=== PATIENT | male | born 1995 | race Caucasian/White ===

== ENCOUNTER → 2025-04-29 12:16 | Outpatient (CLI) | payer SELFPAY ==
[2025-04-29 21:09] LABS: Urine N gonorrhoeae NOT DETECTED
[2025-04-29 21:10] LABS: Urine Chlamydia NOT DETECTED
== END ==
PROVIDERS: Visit Provider Physician Assistant Medical
DX: N50.811 Right testicular pain (principal); N50.812 Left testicular pain
CPT/HCPCS: 87491; 87591

== ENCOUNTER → 2025-05-13 15:31 | Outpatient (CLI) | payer SELFPAY ==
--- NOTE | 2025-05-13 15:35 | DI.US.S_ITS ---
PROCEDURE: US SCROTUM INDICATIONS: testicular pain TECHNIQUE: Real-time scanning was performed of the scrotum and testicles, with image documentation. Color and pulse Doppler interrogation was performed of both testicles. COMPARISON: None. FINDINGS: Right: Right testis is normal in size at 4.8 x 3.5 x 2.6 cm, and homogenous in echotexture. Epididymis is normal in overall size and morphology. No hydrocele or varicoceles. Overlying scrotal skin is normal in thickness. Approximately 3-4 nonspecific microcalcifications. Left: Testicle is normal in size at 4.7 x 3.0 x 2.2 cm, and homogeneous in echotexture. Epididymis is normal in overall size and morphology. No hydrocele or varicoceles. Overlying scrotal skin is normal in thickness. Approximately 3-4 nonspecific microcalcifications. Doppler: Color and pulse Doppler demonstrate normal and symmetric arterial flow in both testicles. IMPRESSION: Bilateral few microcalcifications are nonspecific. Otherwise negative without ultrasound evidence of torsion Dictated by: Ge Hancock M.D. on 05/13/2025 at 16:56 Approved by: Ge Hancock M.D. on 05/13/2025 at 16:59
== END ==
PROVIDERS: Referring Provider Physician Assistant Medical; Visit Provider Physician Assistant Medical
DX: N50.811 Right testicular pain (principal); N50.812 Left testicular pain
CPT/HCPCS: 76870; 93975